=== PATIENT | female | born 1970 | race Caucasian/White ===

== ENCOUNTER → 2017-11-02 10:08 | Outpatient (CLI) | payer BC | END | disposition home or self-care (01) | LOC: D.MRI 10:08 | DX: M25.562 Pain in left knee (principal) ==

== ENCOUNTER 2019-02-08 15:19 | Inpatient (IN) | payer BC ==
[~2019-02-08] VITALS: Ht 170.2 cm; Wt 77.3 kg
[2019-03-14] MEDS ORDERED: AMBIEN10 MG PO (15:33)
[2019-03-14] MEDS ORDERED: VITAMIN D250000 UNIT PO (15:34)
[2019-03-14] MEDS ORDERED: EZFE 200200 MG PO (15:34)
[2019-03-14] MEDS ORDERED: CO Q-10200 MG PO (15:34)
[2019-03-14] MEDS ORDERED: FOLATE0.4 MG PO (15:35)
[2019-03-14] MEDS ORDERED: MERIBIN5 MG PO (15:35)
[2019-03-15] MEDS ORDERED: MOBIC7.5 MG PO (10:41)
[2019-03-15 11:16] LABS: BASOPHILS 0.9 % (0-2); EOSINOPHILS 1.7 % (0-7); HEMATOCRIT 42.9 % (36.0-48.0); HEMOGLOBIN 14.2 g/dL (12-16); IMMATURE GRANULOCYTES 0.3 % (0-5); LYMPHOCYTES 31.3 % (15-50); MCH 31.1 pg (26.0-34.0); MCHC 33.1 g/dL (31.0-37.0); MCV 93.9 fL (80.0-100.0); MEAN PLATELET VOLUME 9.3 fL (7.4-10.4); MONOCYTES 8.7 % (2-11); NEUTROPHILS 57.1 % (40-80); PLATELET COUNT 305 10x3/uL (130-400); RBC 4.57 10x6/uL (4.00-5.40); RDW 12.3 % (11.5-14.5); WBC 6.9 10x3/uL (4.8-10.8)
[2019-03-15 11:27] LABS: CALC OSMOLALITY 278 mosm/kg (275-300); CALCIUM 9.3 mg/dL (8.5-10.1); CARBON DIOXIDE 30.8 mmol/L (21.0-32.0); CHLORIDE - SERUM 104 mmol/L (98-107); CREATININE - SERUM 0.7 mg/dL (0.6-1.3); GLUCOSE 88 mg/dL (74-106); POTASSIUM - SERUM 4.5 mmol/L (3.5-5.1); SODIUM 140 mmol/L (136-145); UREA NITROGEN 16 mg/dL (7-18); eGFR NON AFRICAN AMERICAN > 90 mL/min (90-120)
[2019-03-15 11:31] LABS: APPEARANCE HAZY (CLEAR); BILIRUBIN NEGATIVE (NEGATIVE); COLOR YELLOW (YELLOW); GLUCOSE NEGATIVE (NEGATIVE); KETONE NEGATIVE (NEGATIVE); NITRITE NEGATIVE (NEGATIVE); PROTEIN NEGATIVE (NEGATIVE); UROBILINOGEN NORMAL (NORMAL)
[2019-03-15 12:20] LABS: APTT 28.4 SECONDS (22.8-39.4); INR 1.01 (0.85-1.17); PROTIME 12.8 SECONDS (11.6-15.0)
[2019-03-17] VITALS (12 sets, daily range): BP systolic 83–114; BP diastolic 50–72; Ht 170.2 cm; Wt 77.3 kg
[2019-03-17 06:49] LABS: HCG URINE NEGATIVE (NEGATIVE)
--- NOTE | 2019-03-17 08:11 | NUR ---
LEF PREPPED FROM HIP TO TOE PLASMA BLADE USED PAD #[id number] DATE# [id number]
--- NOTE | 2019-03-17 10:10 | OP ---
PATIENT NAME: VICTOR HUGO COCHRAN MEDICAL RECORD: [id number] :68 LOCATION:[id number] ADMISSION DATE:03/17/19 SURGEON: ARMANDO WEBB DO DATE OF OPERATION: 03/17/2019 PROCEDURE PERFORMED: Left total knee arthroplasty. PREOPERATIVE DIAGNOSIS: Left knee osteoarthritis. POSTOPERATIVE DIAGNOSIS: Left knee osteoarthritis. INDICATIONS: Ms. Cochran is a 48-year-old female who has had prior knee arthroscopy as well as ACL reconstruction, which re-tore a few years ago. She has had severe instability and pain as well as wearing for quite some time. She is tired of dealing with pain and wants something done about it. I informed her of the risks including her young age, she may be a risk for revision and to her high activity level, but she could not deal with the pain any longer. She is aware of the risks of infection, bleeding, damage to nerves and vessels, need for further surgery, failure of implants, blood clots, and even and she signed a consent. SURGEON: Armnado Webb DO DESCRIPTION OF PROCEDURE: The patient received a block by anesthesia in the preoperative area. He was taken to the operative suite, laid in supine position, given general anesthetic and LMA was placed. She was given 2 grams of Ancef and 80 mg of gentamicin, a gram of TXA prior to starting. The left lower extremity was then prepped and draped in sterile fashion. Timeout was performed. Everyone was in agreeance with the correct side, site, patient, and procedure. The left knee was then marked out and covered in [place]. The incision began with #10 blade scalpel through the skin down to the capsule. Any bleeding was coagulated with Aquamantys. Throughout the procedure, the fresh 10 blade was then used to do a medial parapatellar approach to the capsule. The knee was then brought to extension. Part of the fat pad was removed and the patella was milled down to fit prosthesis, sized to be a 31. The knee was then flexed up and the femoral canal was entered. The distal femur was then cut and the proximal tibia was then cut as well, measuring off the lateral side due to a severe wear on the posterior lateral tibial plateau. This was then removed. The knee was then brought in extension. The menisci removed and any bleeding was coagulated with Aquamantys on the posterior knee and on the medial and lateral sides. The 10 extension blocks then fit very well. The knee was flexed up and the femur was measured to be 65. A 4-in-1 cutting block was put on and Cortez wing was used to make sure there was no notching. The distal femur was then cut and the bone was removed. Then, the trial was put on the tibia, it was floated in and ranged and rotation was marked. The lug holes were then drilled on the femur and on the patella for the prosthesis. Once that was completed, this was removed and then tibia was sized and sized to be a 67. This was then reamed and punched and extra holes put in the tibia for cement mantle interdigitation. The cement was then mixed, placed in the tibia and on the implant and impacted in place. Excess cement was removed. The femur was then impacted on and a 10 poly was put in between them, brought to extension. The patella was then irrigated out and was cemented on and the screws held in place. The knee was then irrigated and then a Betadine mixture of 10% povidone iodine in normal saline was put in the knee for 3 minutes. This was then irrigated out with more than a liter of normal saline and we then sized the poly and we OPERATIVE REPORT [id number] VICTOR HUGO COCHRAN decided to go with the 12, it fit very well, and had good medial and lateral stability. This was then locked into place and once it was locked into place, it ranged very well and the knee was irrigated one more time and vancomycin and tobramycin powder as well as the Wes was put in. Capsule was then closed with #2 Ethibond in a [id number] fashion and the skin was closed with 2-0 Vicryl in an inverted interrupted fashion. A ZipLine was placed on the knee. Adaptic, 4 x 4s, ABD, Webril, [place] wrap was then placed on the knee. She was given another gram of TXA prior to closure. She was awakened and taken to recovery in stable condition. Blood loss was approximately 150 mL. COMPLICATIONS: None. TRANSINT:[id number] Voice Confirmation ID: [id number] DOCUMENT ID: [id number] ARMANDO WEBB DO at 1010 CC: [id number] DICTATION DATE: 03/17/19 0856 [employer] INCIDENT RESPONDER: 03/17/19 0959 ADM IN [facility] [address] [id number]
--- NOTE | 2019-03-17 10:20 | NUR ---
RECEIVED TO ROOM 2209 VIA BED FROM PACU. A/O X3. AT BEDSIDE. SKIN IS INTACT WITHOUT REDNESS EXCEPT INCISION TO LEFT KNEE WHICH HAS A DRY INTACT DRESSING IN PLACE. PAIN IS AT A 3. DENIES NEEDS.
--- NOTE | 2019-03-17 13:17 | NUR ---
AMBULATED IN HALLWAY WITH PT USING RW. DID VERY WELL. ATE SOME OF LUNCH WITHOUT C/O NAUSEA. REQUESTED AND GIVEN ONE 5MG OXY IR WITH 50MG VISTIRIL PO FOR PAIN TO LEFT KNEE LEVEL 4. WILL MONITOR.
--- NOTE | 2019-03-17 18:39 | NUR ---
RESTING QUIETLY IN BED. DENIES NEEDS. AT BEDSIDE.
--- NOTE | 2019-03-17 20:00 | NUR ---
A/O AND SITTING UP IN BED. IV TO THE RT HAND WITH NO REDNESS OR SWELLING. CLEAN/ INTACT DRESSING TO THE LT LEG, PULSE PALP. DENIES NO NEEDS AT THIS TIME. CONTINUE PLAN OF CARE.
[2019-03-18 04:00] VITALS: BP 92/68
--- NOTE | 2019-03-18 04:09 | NUR ---
I have reviewed this patient and I concur with the Shift Assessment completed by the Licensed Practical Nurse today this shift.
[2019-03-18 05:55] LABS: BASOPHILS 0.2 % (0-2); EOSINOPHILS 0.3 % (0-7); HEMATOCRIT 31.3 % (36.0-48.0); IMMATURE GRANULOCYTES 0.2 % (0-5); LYMPHOCYTES 25.7 % (15-50); MCH 30.4 pg (26.0-34.0); MCHC 31.9 g/dL (31.0-37.0); MCV 95.1 fL (80.0-100.0); MEAN PLATELET VOLUME 9.9 fL (7.4-10.4); NEUTROPHILS 63.6 % (40-80); RBC 3.29 10x6/uL (4.00-5.40); RDW 12.7 % (11.5-14.5); WBC 10.1 10x3/uL (4.8-10.8)
[2019-03-18 06:02] LABS: PLATELET COUNT 237 10x3/uL (130-400)
[2019-03-18 06:38] LABS: ALBUMIN 2.6 g/dL (3.4-5.0); ANION GAP 10.1 mmol/L (8-16); BILIRUBIN - TOTAL 0.38 mg/dL (0.2-1.3); CALCIUM 8.1 mg/dL (8.5-10.1); CREATININE - SERUM 0.9 mg/dL (0.6-1.3); POTASSIUM - SERUM 4.1 mmol/L (3.5-5.1); PROTEIN - SERUM 5.1 g/dL (6.4-8.2)
[2019-03-18] MEDS ORDERED: OXYCODONE HCL5 M1 PO (07:40)
[2019-03-18] MEDS ORDERED: VISTARIL50 MG PO (07:40)
[2019-03-18] MEDS ORDERED: KEFLEX500 MG PO (07:41)
[2019-03-18] MEDS ORDERED: TORADOL10 MG PO (07:41)
[2019-03-18] MEDS ORDERED: BAYER CHEWABLE81 MG PO (07:42)
[2019-03-18 07:49] VITALS: BP 88/52
--- NOTE | 2019-03-18 08:16 | NUR ---
PT HAS NOT HAD FLU SHOT. WOULD LIKE TO RECEIVE. OK PER DR WEBB.
--- NOTE | 2019-03-18 09:58 | NUR ---
PT ALERT X 4. BREATH SOUNDS CLEAR BILAT. IV TO RIGHT HAND, PATENT, DRESSING CDI. DRESSING TO LEFT KNEE CDI. PT REPORTING PAIN OF 4/10, MEDICATED PER ORDERS, WILL MONITOR. BED LOW, CALL LIGHT IN REACH. NO OTHER NEEDS AT THIS TIME.
--- NOTE | 2019-03-18 11:35 | NUR ---
DISCHARGE PAPERWORK SIGNED, ALL QUESTIONS ANSWERED. IV TO RIGHT HAND DC'D, TIP INTACT. ESCORTED OUT BY WHEELCHAIR.
== END 2019-03-18 11:38 | disposition home or self-care (01) | DRG 470 ==
LOC: D.SDCHOLD 02-22 10:00 → D.MS 03-17 05:50 → D.SDCHOLD 03-17 05:50 → D.MS 03-17 09:59 → D.SDCHOLD 03-17 10:00 → D.MS 03-18 11:38
PROVIDERS: Emergency Medicine; ADMIT Orthopaedic Surgery; ATTEND Orthopaedic Surgery
PROC: 0SRD0J9 Replacement of Left Knee Joint with Synthetic Substitute, Cemented, Open Approach (ICD-10-PCS; principal; 2019-03-17 07:00)
DX: M17.12 Unilateral primary osteoarthritis, left knee (principal); D62 Acute posthemorrhagic anemia

== ENCOUNTER → 2019-02-28 12:38 | Outpatient (CLI) | payer BC | END | disposition home or self-care (01) | LOC: D.LABREF 12:38 | PROVIDERS: ATTEND Orthopaedic Surgery | DX: M17.12 Unilateral primary osteoarthritis, left knee (principal) ==

== ENCOUNTER 2020-06-02 23:33 | Emergency (ER) | payer BC ==
[~2020-06-02] VITALS: Ht 170.2 cm; Wt 81.8 kg
[~2020-06-02 23:33] MED LIST: AMBIEN10 MG PO; BAYER CHEWABLE81 MG PO; CO Q-10200 MG PO; EZFE 200200 MG PO; FOLATE0.4 MG PO; KEFLEX500 MG PO; MERIBIN5 MG PO; MOBIC7.5 MG PO; OXYCODONE HCL5 M1 PO; TORADOL10 MG PO; VISTARIL50 MG PO; VITAMIN D250000 UNIT PO
[2020-06-02 23:48] VITALS: Ht 170.2 cm; Wt 81.8 kg
[2020-06-02] MEDS ORDERED: MOBIC7.5 MG PO (23:49)
[2020-06-03 00:34] LABS: BASOPHILS 0.2 % (0-2); EOSINOPHILS 0.6 % (0-7); HEMATOCRIT 47.3 % (36.0-48.0); HEMOGLOBIN 15.8 g/dL (12-16); IMMATURE GRANULOCYTES 0.3 % (0-5); LYMPHOCYTE ABS# 0.54 10x3/uL (1.18-3.74); LYMPHOCYTES 3.2 % (15-50); MCH 31.2 pg (26.0-34.0); MCHC 33.4 g/dL (31.0-37.0); MCV 93.3 fL (80.0-100.0); MEAN PLATELET VOLUME 9.4 fL (7.4-10.4); MONOCYTES 6.1 % (2-11); NEUTROPHIL ABS# 15.34 10x3/uL (1.56-6.13); NEUTROPHILS 89.6 % (40-80); PLATELET COUNT 331 10x3/uL (130-400); RBC 5.07 10x6/uL (4.00-5.40); RDW 12.2 % (11.5-14.5); WBC 17.1 10x3/uL (4.8-10.8)
[2020-06-03] MEDS ORDERED: ZOFRAN ODT4 MG/UDTAB PO (00:43)
[2020-06-03 00:46] LABS: CALC OSMOLALITY 277 mosm/kg (275-300); CARBON DIOXIDE 22.7 mmol/L (21.0-32.0); CHLORIDE - SERUM 102 mmol/L (98-107); GLUCOSE 153 mg/dL (74-106); POTASSIUM - SERUM 3.9 mmol/L (3.5-5.1); SODIUM 136 mmol/L (136-145); UREA NITROGEN 20 mg/dL (7-18); eGFR NON AFRICAN AMERICAN 62 mL/min (90-120)
[2020-06-03 00:47] LABS: BILIRUBIN NEGATIVE (NEGATIVE); KETONE NEGATIVE (NEGATIVE); NITRITE NEGATIVE (NEGATIVE); UROBILINOGEN NORMAL mg/dL (< 2)
[2020-06-03 00:48] LABS: BACTERIA MANY HPF (NONE SEEN); SQUAMOUS EPITHELIAL 0-5 HPF (0-4); WHITE CELLS - URINE 0-5 HPF (0-4)
[2020-06-03 00:55] LABS: ALBUMIN 3.9 g/dL (3.4-5.0); ALKALINE PHOSPHATASE 76 U/L (30-120); ALT (SGPT) 33 U/L (10-68); BILIRUBIN - TOTAL 0.64 mg/dL (0.2-1.3); LIPASE 147 U/L (73-393); PROTEIN - SERUM 7.8 g/dL (6.4-8.2); TROPONIN-I < 0.017 ng/mL (0.000-0.060)
[2020-06-03 01:33] LABS: INFLUENZA TYPE A NEGATIVE (NEGATIVE); INFLUENZA TYPE B NEGATIVE (NEGATIVE); SARS-CoV-2 ANTIGEN NEGATIVE- SARS-COV-2 (NEGATIVE)
[2020-06-03] MEDS ORDERED: LOMOTIL 2.5-0.1 EAC1 PO (01:43)
[2020-06-03 02:25] VITALS: BP 114/65
== END 2020-06-03 02:25 | disposition home or self-care (01) ==
LOC: D.ER 23:33
PROVIDERS: Emergency Medicine
DX: R11.10 Vomiting, unspecified (principal); A08.4 Viral intestinal infection, unspecified; K52.89 Other specified noninfective gastroenteritis and colitis; N39.0 Urinary tract infection, site not specified

== ENCOUNTER → 2020-07-29 07:37 | Outpatient (CLI) | payer BC ==
[2020-06-02 23:48] VITALS: BMI 28.2
[~2020-07-29 07:37] MED LIST changes: +LOMOTIL 2.5-0.1 EAC1 PO; +ZOFRAN ODT4 MG/UDTAB PO
== END | disposition home or self-care (01) ==
LOC: D.MRI 07:37
PROVIDERS: ATTEND Internal Medicine Hematology & Oncology
DX: C43.71 Malignant melanoma of right lower limb, including hip (principal)